=== PATIENT | female | born 1990 | race Caucasian/White ===

== ENCOUNTER 2018-08-27 07:26 | Inpatient (IN) | payer MEDICAID, OTHER ==
[~2018-08-27] VITALS: Ht 154.9 cm; Wt 54.4 kg
[2018-08-27] MEDS ORDERED: SODIUM CHLORIDE 0.9% 1,000 ML IV ONE ×2 (07:35)
[2018-08-27] MEDS ORDERED: TAMSULOSIN HYDROCHLORIDE 0.4 MG CAP PO ONE (07:45)
[2018-08-27] MEDS ORDERED: KETOROLAC TROMETH 30 MG/ML 1ML VIAL IV ONE (07:45)
[2018-08-27] MEDS ORDERED: ONDANSETRON HCL 4 MG/2 ML VIAL IV ONE (07:45)
[2018-08-27 08:27] LABS: Basophils # (auto) 0 uL; Eosinophils # (auto) 0 uL; Hemoglobin 12.2 g/dL (12.2-16.2); Lymphocytes # (auto) 0.8 uL; Mean Corpuscular Hemoglobin 24.1 pg (28.0-32.0); Monocytes # (auto) 0.6 uL; Red Blood Cells 5.06 10^6/uL (4.0-5.20)
[2018-08-27 08:29] LABS: Basophils % (auto) 0.3 % (0.0-2.0); Eosinophils % (auto) 0.1 % (0.0-7.0); Hematocrit 38.9 % (36.0-46.0); Lymphocytes % (auto) 5.7 % (10.0-50.0); Mean Corpuscular Hgb Conc. 31.3 g/dL (32.0-36.0); Mean Corpuscular Volume 76.9 fL (80.0-100.0); Monocytes % (auto) 4.1 % (0.0-12.0); Neutrophils # (auto) 13.2 uL; Neutrophils % (auto) 89.8 % (37.0-80.0); Platelet Count (auto) 282 10^3/uL (140-450); White Blood Cell 14.7 10^3/uL (4.4-10.8)
[2018-08-27 08:33] LABS: Albumin 3.4 g/dL (3.4-5.0); BUN/Creatinine Ratio 20.7; Calcium 8.6 mg/dL (8.5-10.1); Potassium 3.8 mmol/L (3.5-5.1)
[2018-08-27 08:35] LABS: Bilirubin, Total 0.4 mg/dL (0.2-1.0); Total Protein 7.4 g/dL (6.4-8.2)
[2018-08-27] MEDS ORDERED: MORPHINE SULFATE 4 MG/ML SYR/VIAL IV ONE (09:15)
[2018-08-27] MEDS ORDERED: PROMETHAZINE HCL 25 MG/ML 1ML IV ONE (09:15)
[2018-08-27] MEDS ORDERED: SODIUM CHLORIDE 0.9% 1,000 ML IV SCH (09:57)
[2018-08-27] MEDS ORDERED: ACETAMINOPHEN 500 MG TAB PO PRN (10:00)
[2018-08-27] MEDS ORDERED: cefTRIAXone 1GM/50ML D5W 50 ML IV ONE (10:00)
[2018-08-27] MEDS ORDERED: KETOROLAC TROMETH 30 MG/ML 1ML VIAL IV PRN (10:00)
[2018-08-27] MEDS ORDERED: PROMETHAZINE HCL 25 MG/ML 1ML IV PRN (10:00)
[2018-08-27] MEDS ORDERED: DEXTROSE (50%) 50ML SYRG IV PRN (10:00)
[2018-08-27] MEDS ORDERED: traMADol HCL 50 MG TAB PO PRN (10:00)
[2018-08-27] MEDS: FAMOTIDINE 20 MG TAB PO SCH ×2 (10:36→21:31)
[2018-08-27] MEDS ORDERED: MANNITOL 20% SOLN 100 gm/500ml 62.5 ML IV ONE (10:45)
[2018-08-27 11:06] LABS: Urine Bacteria NONE SEEN /hpf (None Seen); Urine Blood 1+ /uL (Negative); Urine Mucus FEW (None Seen); Urine Specific Gravity 1.013 (1.001-1.035); Urine WBC 2 /hpf (0 - 5)
--- NOTE | 2018-08-27 11:09 | NUR ---
MS admit from ER [facility] admitted to tele/MS after SBAR received. Patient oriented to Rocío Haines, primary RN, unit, room, bed, and unit policies regarding patient care and visiting hours. Patient weighed by bedscale and encouraged to call if they need something. All questions and concerns addressed, patient verbalized understanding. Pt reports tolerale pain level at this time and denies need for pain meds. No s/s of distress or sob noted. VSS. Will cont care and medicate as ordered as soon as Mannitol is sent from Pharmacy. IVF continued as ordered. Cont care
[2018-08-27 11:20] VITALS: BP 128/75
[2018-08-27] MEDS: ACCU-CHEK COMFORT CURVE STRIP VI SCH ×3 (11:30→21:32)
[2018-08-27 12:34] VITALS: BP 120/76
[2018-08-27] MEDS: SODIUM CHLORIDE 0.9% 1,000 ML IV SCH (15:58)
[2018-08-27 16:50] VITALS: BP 122/75
[2018-08-27] MEDS ORDERED: TAMSULOSIN HYDROCHLORIDE 0.4 MG CAP PO SCH (18:00)
--- NOTE | 2018-08-27 18:30 | NUR ---
[facility] patient states she passed kidney stone. Small particle noted in strainer. Sent to lab for analysis as ordered. Cont care
--- NOTE | 2018-08-27 19:15 | NUR ---
OPENING SHIFT NOTE Received report from day shift RN. Patient is resting at this time. No s/s of discomfort is noted. Bed is in lowest/locked position with side rails up X's 2 and call light is within reach of patient. Will continue to monitor for changes and round hourly/PRN.
--- NOTE | 2018-08-27 21:30 | NUR ---
ROUNDS Patient is A&O X's 4 with no s/s of distress. Patient verbalized she has no pain at this time. Educated patient on pain management and pain medication/POC and to use call light when in need of assistance. Patient verbalized understanding. Bed is in lowest/locked position with side rails up X's 2 and call light/personal items are within reach of patient. Will continue to monitor for changes and round hourly/PRN.
[2018-08-27 22:00] VITALS: BP 121/65
[2018-08-28] MEDS: SODIUM CHLORIDE 0.9% 1,000 ML IV SCH ×2 (00:11→09:37)
[2018-08-28 05:00] VITALS: BP 108/68
[2018-08-28] MEDS: ACCU-CHEK COMFORT CURVE STRIP VI SCH ×2 (06:11→11:30)
[2018-08-28 06:15] LABS: Basophils # (auto) 0.1 uL; Eosinophils # (auto) 0.2 uL; Monocytes # (auto) 0.6 uL
[2018-08-28 06:18] LABS: Basophils % (auto) 1.3 % (0.0-2.0); Eosinophils % (auto) 2.6 % (0.0-7.0); Hematocrit 35.4 % (36.0-46.0); Hemoglobin 11.4 g/dL (12.2-16.2); Lymphocytes # (auto) 1.7 uL; Lymphocytes % (auto) 21.4 % (10.0-50.0); Mean Corpuscular Hemoglobin 24.6 pg (28.0-32.0); Mean Corpuscular Hgb Conc. 32.1 g/dL (32.0-36.0); Mean Corpuscular Volume 76.7 fL (80.0-100.0); Monocytes % (auto) 8.1 % (0.0-12.0); Neutrophils # (auto) 5.2 uL; Neutrophils % (auto) 66.6 % (37.0-80.0); Nucleated Red Blood Cells % 0.1 %; Platelet Count (auto) 215 10^3/uL (140-450); Red Blood Cells 4.62 10^6/uL (4.0-5.20); Red Cell Distribution Width 16.8 % (11.8-14.3); White Blood Cell 7.8 10^3/uL (4.4-10.8)
[2018-08-28 06:35] LABS: Albumin 3.1 g/dL (3.4-5.0); Calcium 7.8 mg/dL (8.5-10.1); Potassium 3.5 mmol/L (3.5-5.1)
[2018-08-28 06:41] LABS: BUN/Creatinine Ratio 22.9; Bilirubin, Total 0.3 mg/dL (0.2-1.0); Total Protein 6.4 g/dL (6.4-8.2)
--- NOTE | 2018-08-28 07:20 | NUR ---
Opening Shift Note RECEIVED REPORT FROM NOC RN. Assumed care of patient, awake and alert. No S/S of distress/SOB or pain. BED IN LOWEST, LOCKED POSITION WITH SIDERAILS UP x2. Instructed on POC and to call for assist PRN, will continue to monitor for changes Q1hr and PRN.
[2018-08-28 08:00] VITALS: BP 106/64
[2018-08-28 08:36] VITALS: BP 106/64
[2018-08-28] MEDS ORDERED: cefTRIAXone 1GM/50ML D5W 50 ML IV SCH (09:00)
[2018-08-28] MEDS: FAMOTIDINE 20 MG TAB PO SCH (09:36)
[2018-08-28 12:02] VITALS: BP 109/64
[2018-08-28 13:45] VITALS: BP 109/64
--- NOTE | 2018-08-28 14:16 | NUR ---
IV removal 22G IV DC'd with clean sterile technique, catheter fully intact. Pressure dressing applied to site. Patient tolerated well.
--- NOTE | 2018-08-28 14:20 | NUR ---
Discharge instructions given as ordered. Encourage to follow up with PMD as instructed. All questions and concerns addressed. Patient verbalized understanding. Prescriptions filled by [facility] and returned to bedside for patient. IV removed with catheter intact, pressure dressing applied. Patient ambulated to vehicle with all personal belongings, accompanied by family member. No distress noted at time of departure.
== END 2018-08-28 14:20 | disposition home or self-care (01) | DRG 720 ==
LOC: ER 07:26 → EDBD 07:26 → OVERFLOW 09:59 → WEST WING 11:14
PROVIDERS: ADMIT Internal Medicine; ATTEND Internal Medicine
DX: A41.9 Sepsis, unspecified organism (principal); N12 Tubulo-interstitial nephritis, not specified as acute or chronic; N13.2 Hydronephrosis with renal and ureteral calculous obstruction; Z83.3 Family history of diabetes mellitus
CPT/HCPCS: 36415; 74176; 80053; 81001; 82150; 82360; 82962; 83036; 83690; 85025; 87086; 96361; 96365; 96375; G0378; J0696; J1885; J2405

== ENCOUNTER 2019-07-31 15:29 | Emergency (ER) | payer MEDICAID ==
[~2019-07-31] VITALS: Ht 154.9 cm; Wt 49.9 kg
[2019-07-31 15:53] VITALS: BP 121/78
[2019-07-31 16:42] LABS: Basophils # (auto) 0.1 10 ^3/uL (0-0.2); Basophils % (auto) 0.6 % (0.0-2.0); Eosinophils # (auto) 0.2 10 ^3/uL (0-0.8); Eosinophils % (auto) 2.2 % (0.0-7.0); Hematocrit 38.5 % (36.0-46.0); Hemoglobin 12.5 g/dL (12.2-16.2); Lymphocytes # (auto) 1.7 10 ^3/uL (0.4-5.4); Mean Corpuscular Hemoglobin 25.8 pg (28.0-32.0); Mean Corpuscular Hgb Conc. 32.5 g/dL (32.0-36.0); Mean Corpuscular Volume 79.4 fL (80.0-100.0); Monocytes # (auto) 0.6 10 ^3/uL (0-1.3); Monocytes % (auto) 6.2 % (0.0-12.0); Neutrophils # (auto) 6.6 10 ^3/uL (1.6-8.6); Platelet Count (auto) 343 10^3/uL (140-450); Red Blood Cells 4.85 10^6/uL (4.0-5.20); Red Cell Distribution Width 15.3 % (11.8-14.3); White Blood Cell 9.1 10^3/uL (4.4-10.8)
[2019-07-31 16:46] LABS: Urine Amorphous Crystal FEW /hpf (None Seen); Urine Bacteria FEW /hpf (None Seen); Urine Blood 2+ /uL (Negative); Urine Mucus FEW (None Seen); Urine Specific Gravity 1.018 (1.001-1.035); Urine WBC 15 /hpf (0 - 5)
[2019-07-31] MEDS ORDERED: cefTRIAXone SOD 1,000 MG VL IM ONE (17:15)
== END 2019-07-31 17:42 | disposition home or self-care (01) ==
LOC: ER 15:29
DX: S39.012A Strain of muscle, fascia and tendon of lower back, initial encounter (principal); N39.0 Urinary tract infection, site not specified; Z32.01 Encounter for pregnancy test, result positive; X58.XXXA Exposure to other specified factors, initial encounter; Y93.89 Activity, other specified; Y92.89 Other specified places as the place of occurrence of the external cause; Y99.8 Other external cause status
CPT/HCPCS: 36415; 81001; 81025; 84702; 85025; 96372; 99283; J0696